=== PATIENT | female | born 2000 | race Caucasian/White ===

== ENCOUNTER 2022-05-15 15:19 | Emergency (ER) | payer OTHER, SELFPAY ==
[2022-05-15] VITALS (11 sets, daily range): BP systolic 91–137; BP diastolic 73–88; PULSE 105–110; RESP 16–18; TEMP 37; O2SAT 91–98
--- NOTE | ~2022-05-15 | XR_ITS ---
EXAM: XR ankle LT min 3V DATE: 05/15/2022 15:57 HISTORY: PT ROLLED ANKLE TODAY. PAIN AND SWELLING TO LATERAL LT ANKLE . COMPARISON: None available. FINDINGS: Normal mineralization. No fracture or dislocation. No lytic or blastic lesion. Joint space s are maintained. No erosion or periosteal change. Anterolateral soft tissue swelling. IMPRESSION: No acute osseous finding the left ankle. Reviewed, dictated and finalized at location K.
--- NOTE | 2022-05-15 15:51 | ED.GENADULT ---
HPI - General Adult General Chief complaint: Extremity Injury, Lower Stated complaint: left ankly deformity Time Seen by Provider: 05/15/22 15:26 History of Present Illness HPI narrative: 22-year-old female presenting the emergency department for evaluation of left ankle pain. Patient states she was walking on her driveway when her friend hopped on her back causing her to roll her left ankle. Patient states she has a deformity and witnessed loud pop. Patient denies any other pain or injury. Related Data Allergies Allergy/AdvReac Type Severity Reaction Status Date / Time lactose Allergy Gastrointestinal Verified 05/15/22 16:28 Upset Review of Systems Review of Systems: CONSTITUTIONAL: Denies fever, chills, or sweats. EYES: Denies visual changes, redness, or discharge. ENT: Denies rhinorrhea, congestion, sore throat, or otalgia. CARDIOVASCULAR: Denies chest pain, palpitations, or edema. RESPIRATORY: Denies cough or dyspnea. GASTROINTESTINAL: Denies abdominal pain, nausea, vomiting, or diarrhea. GENITOURINARY: Denies dysuria or hematuria. SKIN: Denies rash or itching. MUSCULOSKELETAL: Left ankle pain NEUROLOGIC: Denies headache, numbness, or weakness. Exam Narrative: CONSTITUTIONAL: Denies fever, chills, or sweats. EYES: Denies visual changes, redness, or discharge. ENT: Denies rhinorrhea, congestion, sore throat, or otalgia. CARDIOVASCULAR: Denies chest pain, palpitations, or edema. RESPIRATORY: Denies cough or dyspnea. GASTROINTESTINAL: Denies abdominal pain, nausea, vomiting, or diarrhea. GENITOURINARY: Denies dysuria or hematuria. SKIN: Denies rash or itching. MUSCULOSKELETAL: Left ankle pain with lateral deformity. No proximal leg tenderness NEUROLOGIC: Denies headache, numbness, or weakness. Course Course Emergency Course: X-ray shows no acute fracture or dislocation. Patient and family were updated on the results of the x-ray and plan for treatment for home. All questions concerns were addressed. Patient was provided Kenney wrap and crutches for limited weightbearing. Vital Signs Vital signs: Vital Signs Temperature 98.6 F 05/15/22 15:24 Pulse Rate 105 H 05/15/22 15:24 Respiratory Rate 18 05/15/22 15:24 Blood Pressure 137/87 05/15/22 15:24 Pulse Oximetry 96 05/15/22 15:24 Temperature 98.6 F 05/15/22 15:24 Pulse Rate 110 H 05/15/22 17:57 Respiratory Rate 16 05/15/22 17:57 Blood Pressure 125/84 05/15/22 17:57 Pulse Oximetry 98 05/15/22 17:57 Medical Decision Making Vital Signs Vital Signs: Vital Signs Temperature 98.6 F 05/15/22 15:24 Pulse Rate 105 H 05/15/22 15:24 Respiratory Rate 18 05/15/22 15:24 Blood Pressure 137/87 05/15/22 15:24 Pulse Oximetry 96 05/15/22 15:24 Temperature 98.6 F 05/15/22 15:24 Pulse Rate 110 H 05/15/22 17:57 Respiratory Rate 16 05/15/22 17:57 Blood Pressure 125/84 05/15/22 17:57 Pulse Oximetry 98 05/15/22 17:57 Imaging Data Radiologist's impression: Impressions Ankle X-Ray 05/15/22 16:29 IMPRESSION: No acute osseous finding the left ankle. Discharge Plan Discharge Clinical Impression: Ankle sprain and strain Patient Disposition: Home, Self-Care Condition: Stable Instructions: Antibiotic Form, Ankle Sprain (DC), Crutch Instructions (ED) Additional Instructions: Kenney wrap for comfort. Crutches for limited weightbearing for the next 3 to 5 days. Tylenol and ibuprofen for pain control. Have close follow-up with your primary care physician. Additionally you may need follow-up with orthopedics. If you have any worsening symptoms please call or return to the emergency department. Follow-up/Referrals: Ko Cintron MD [Physician] - Chuy Brady MD [Physician] - Torito,Kathleen Hsu MD [Primary Care Provider] -
== END 2022-05-15 17:59 | disposition home or self-care (01) ==
PROVIDERS: Emergency Provider Emergency Medicine; PCP Pediatrics Adolescent Medicine
DX: S93.402A Sprain of unspecified ligament of left ankle, initial encounter (principal); S96.912A Strain of unspecified muscle and tendon at ankle and foot level, left foot, initial encounter; X50.9XXA Other and unspecified overexertion or strenuous movements or postures, initial encounter
CPT/HCPCS: 73610; 99283

== ENCOUNTER 2022-05-21 12:59 | Emergency (ER) | payer OTHER, SELFPAY ==
--- NOTE | ~2022-05-21 | XR_ITS ---
EXAMINATION: XR ankle LT min 3V DATE: 05/21/2022 13:30 INDICATION: Lateral left ankle pain and bruising post fall TECHNIQUE: Anteroposterior, oblique, mortise, and lateral views of the left ankle were obtained. COMPARISON: 05/15/2022 FINDINGS: Alignment is normal. No fracture. Joint spaces are well maintained. Soft tissue swelling about the la teral malleolus. Increased density anterior to the ankle joint suggesting a moderate-sized ankle join t effusion. IMPRESSION: 1. Left ankle joint effusion and lateral sided soft tissue swelling without acute osseous abnormality . Reviewed, dictated and finalized at location A. IMPRESSION: 1. Left ankle joint effusion and lateral sided soft tissue swelling without acu te osseous abnormality.
[2022-05-21 13:01] VITALS: BP 136/81; PULSE 100; RESP 16; TEMP 36.6; O2SAT 100
--- NOTE | 2022-05-21 13:18 | ED.LOWEXIN ---
HPI - Extremity Injury (Lower) General Chief Complaint: Extremity Injury, Lower Stated Complaint: left ankle injury Time Seen by Provider: 05/21/22 13:02 Source: RN notes reviewed History of Present Illness HPI Narrative: Patient presents emergency department from home for left ankle pain. Patient states that she sprained her ankle approximately 6 days ago she states she was giving her friend a piggyback ride when her ankle gave out and she rolled her ankle she was at that time she comes emergency department had x-rays obtained that showed no acute fracture she is placed in Kenney wrap and placed on crutches states she has been minimally walking on the ankle she states the next day her dog jumped on her ankle and she had felt a pop she states ankle has been feeling better since then she denies any numbness or tingling of the extremities or any other symptoms Related Data Allergies Allergy/AdvReac Type Severity Reaction Status Date / Time lactose Allergy Gastrointestinal Verified 05/15/22 16:28 Upset Review of Systems Review of Systems: Gen.: Denies fevers or chills Musculoskeletal: See HPI Neuro: Denies numbness, tingling, weakness Skin: Denies rash Endo: Denies DM PMF Past Medical History Medical History (Updated 05/21/22 @ 14:54 by hCuck Dinh DO) Patient denies significant medical history Social History Social History (Updated 05/21/22 @ 13:18 by Chuck Dinh DO) Smoking status: Never smoker Exam Narrative: APPEARANCE: No acute distress, nontoxic, resting in bed Eyes: EOMI HEENT: Normocephalic, atraumatic, RESPIRATORY: No respiratory distress MUSCULOSKELETAl: Tender to palpation of the left lateral ankle with swelling and ecchymosis present in the lateral ankle down into the left foot no tenderness of the anterior medial ankle no tenderness of the proximal fibula or over the base of the fifth metatarsal dorsalis pedis pulse 2+ neurovascular intact NEURO: Awake and alert. Following commands, speech normal, no focal deficits SKIN:: Warm, dry. Normal Color no rash or lesions Course Course Emergency Course: Reviewed previous records as well as previous x-ray with the dog jumping on the ankle the following day we will repeat imaging Discussed with patient results of workup and diagnosis. Discussed need for follow-up with primary care, proper use of medication, and reasons to return to the emergency department. Patient understands and agrees to current treatment plan Vital Signs Vital signs: Vital Signs Temperature 97.9 F 05/21/22 13:01 Pulse Rate 100 05/21/22 13:01 Respiratory Rate 16 05/21/22 13:01 Blood Pressure 136/81 05/21/22 13:01 Pulse Oximetry 100 05/21/22 13:01 Oxygen Delivery Room Air 05/21/22 13:01 Temperature 97.9 F 05/21/22 13:01 Pulse Rate 100 05/21/22 13:01 Respiratory Rate 16 05/21/22 13:01 Blood Pressure 136/81 05/21/22 13:01 Pulse Oximetry 100 05/21/22 13:01 Oxygen Delivery Room Air 05/21/22 13:01 MDM - Extremity Injury (Lower) Imaging Data Radiologist's impression: ITS Impressions Ankle X-Ray 05/21/22 14:10 IMPRESSION: 1. Left ankle joint effusion and lateral sided soft tissue swelling without acute osseous abnormality. Discharge Plan Discharge Clinical Impression: Left ankle sprain Patient Disposition: Home, Self-Care Condition: Stable Instructions: Antibiotic Form, Ankle Sprain (ED) Prescriptions: New ibuprofen 600 mg tablet 600 mg PO TID PRN (Reason: pain) Qty: 14 0RF Follow-up/Referrals: Torito,Kathleen Hsu MD [Primary Care Provider] - 2 Days Time of Disposition: 14:54
[2022-05-21 15:03] VITALS: BP 118/75; PULSE 78; RESP 14; O2SAT 99
== END 2022-05-21 15:05 | disposition home or self-care (01) ==
PROVIDERS: Emergency Provider Emergency Medicine; PCP Pediatrics Adolescent Medicine
DX: S93.402A Sprain of unspecified ligament of left ankle, initial encounter (principal); X50.0XXA Overexertion from strenuous movement or load, initial encounter
CPT/HCPCS: 73610; 99283

== ENCOUNTER 2023-01-16 10:08 | Emergency (ER) | payer OTHER, SELFPAY ==
[2023-01-16 10:19] VITALS: BP 122/74; PULSE 107; RESP 16; TEMP 37.2; O2SAT 98
--- NOTE | 2023-01-16 10:26 | ED.URI ---
HPI - URI/Sore Throat General Chief Complaint: Upper Respiratory Infection Stated Complaint: Sinus Time Seen by Provider: 01/16/23 10:20 Source: patient Mode of arrival: ambulatory Limitations: no limitations History of Present Illness HPI Narrative: Shea is a 22-year-old female patient presenting to the clinic today with complaints of sinus congestion, sore throat, and productive cough with yellow phlegm. She reports that she noted fever last night of 100? F. Symptoms been ongoing x3-4 days. She is 30 weeks . MD elicited complaint: sore throat and nasal congestion Related Data Allergies Allergy/AdvReac Type Severity Reaction Status Date / Time lactose Allergy Gastrointestinal Verified 01/16/23 10:21 Upset Review of Systems Review of Systems: Pertinent positives per HPI. Patient denies any fever, chills, rash, headache, visual changes, dizziness, shortness of breath, chest pain, palpitations, nausea, vomiting, diarrhea, constipation, abdominal pain, or any urinary issues. PMFSH Past Medical History Medical History (Updated 01/16/23 @ 10:41 by Feliz Mahajan APRN) Patient denies significant medical history Social History Social History (Updated 05/21/22 @ 13:18 by Chuck Dinh DO) Smoking status: Never smoker Comments At the time of my signature, I reviewed and agree with the nursing past medical, surgical, social, and family history. There is no relevant family history pertinent to the patient complaint. Exam Narrative: General: Well-developed, well nourished, in no apparent distress, 30 weeks Head: Normocephalic, atraumatic Eyes: Pupils equally round and reactive to light bilaterally, EOM intact, sclera and conjunctive clear, no discharge, lids normal Ears: TMs intact and congested, ear canals clear, no drainage, grossly hearing normal. Nose: Nares patent, clear nasal discharge, no inflammation, no sinus tenderness. Mouth: Oral pharynx red without lesions or masses, good dentition, MMM. PND Neck: Supple, trachea midline, no enlargement of anterior or posterior cervical nodes, no thyroid masses or goiter palpable. Cardio: Regular rate and rhythm, s1 and s2 normal, no murmur appreciated. Resp: Clear to auscultation bilaterally, no rhonchi, rales, wheezing or rubs Course Course Emergency Course: Portions of this record may have been created with voice recognition software. Level of Care: Express Care Visit Vital Signs Vital signs: Vital Signs Temperature 37.2 C 01/16/23 10:19 Pulse Rate 107 H 01/16/23 10:19 Respiratory Rate 16 01/16/23 10:19 Blood Pressure 122/74 01/16/23 10:19 Pulse Oximetry 98 01/16/23 10:19 Oxygen Delivery Room Air 01/16/23 10:19 Temperature 37.2 C 01/16/23 10:19 Pulse Rate 107 H 01/16/23 10:19 Respiratory Rate 16 01/16/23 10:19 Blood Pressure 122/74 01/16/23 10:19 Pulse Oximetry 98 01/16/23 10:19 Oxygen Delivery Room Air 01/16/23 10:19 Vital signs reviewed MDM - URI/Sore Throat MDM Narrative Medical decision making narrative: At the time of visit patient is resting comfortably on exam table. Strep screen was obtained was negative in the clinic today. I suspect patient has URI. Supportive measures were discussed with the patient she voiced understanding discharge instructions agrees to treatment plan. Although no wheezing was here in the clinic she states that she is wheezing at times so I will go ahead and give her a prescription for an albuterol inhaler. Differential Diagnosis Differential diagnosis: Likely upper respiratory infection, otitis media, sinusitis, viral infection, bronchitis, influenza, pharyngitis and other (COVID) Discharge Plan Discharge Clinical Impression: Upper respiratory infection Qualifiers: URI type: unspecified viral URI Qualified Code(s): J06.9 - Acute upper respiratory infection, unspecified Patient Disposition: Home, Self-Care Condition: Stab
== END 2023-01-16 10:43 | disposition home or self-care (01) ==
PROVIDERS: Emergency Provider Nurse Practitioner Family
DX: J06.9 Acute upper respiratory infection, unspecified (principal); Z86.16 Personal history of COVID-19
CPT/HCPCS: 87081; 87880; 99213; G0463

== ENCOUNTER 2023-02-17 23:31 | Observation (INO) | payer OTHER, SELFPAY ==
[2023-02-18 00:29] VITALS: BMI 32.9
--- NOTE | 2023-02-18 00:29 | OBADM ---
This patient, Shea Singletary, admitted to the OB room Labor/Delivery/Recovery 104 for observation. Patient/family oriented to hospital policies and general routines including ID bracelet, bed and alarms, visiting hours, pain management, procedures, bathroom and other care routines, personal items, smoking policy, room service/diet, and visiting hours. Patient/Family are encouraged to report perceived risks to care and to ask questions if they do not understand what they are told or what they should do.
[2023-02-18 00:32] LABS: Appearance Urine Cloudy (Clear); Bacteria Urine 2+ /hpf; Bilirubin Urine Negative (Negative); Blood Urine 2+ (Negative); Color Urine Yellow (Yellow); Glucose Urine UA Negative (Negative); Ketones Urine 3+ mg/dL (Negative); Leukocyte Esterase Ur 1+ LEU/UL (Negative); Nitrate Urine Negative (Negative); Non Pathogenic Casts 0-2; Protein Urine Trace mg/dL (Negative); RBC Urine 0-2 /hpf (0-2); Specific Grav Ur 1.023 (1.001-1.035); Squamous Epithelial Cell Urine Moderate /hpf (Few)
[2023-02-18 00:42] LABS: Add Urine Microscopic? YES
--- NOTE | 2023-03-16 22:37 | PM.OBTRLD ---
OB - Triage/Final Diagnosis Visit Information Comments/Additional reasons for admission: I have assessed the risk for this patient, Shea Singletary, and determined that she would benefit from observation care. Evaluation Laboratory results: Laboratory Tests 02/18/23 00:23 Urine Color Yellow Urine Appearance Cloudy H Urine pH 6.0 Ur Specific [place] 1.023 Urine Protein Trace Urine Glucose (UA) Negative Urine Ketones 3+ H Ur Blood (Man) 2+ H Urine Nitrate Negative Urine Bilirubin Negative Urine Urobilinogen 1.0 Leukocyte Esterase Rfl 1+ H Urine RBC 0-2 Urine WBC 11-20 H Ur Squamous Epith Cells Moderate Urine Bacteria 2+ H Urine Casts 0-2 Final Diagnosis (1) False labor: Code(s): O47.9 - False labor, unspecified Status: Acute
== END 2023-02-18 01:21 | disposition home or self-care (01) ==
PROVIDERS: Admitting Provider Obstetrics & Gynecology; Visit Provider Obstetrics & Gynecology
DX: O47.03 False labor before 37 completed weeks of gestation, third trimester (principal); Z3A.35 35 weeks gestation of pregnancy
CPT/HCPCS: 81001; 87086; 87088; G0378; G0379

== ENCOUNTER 2023-02-18 02:21 | Inpatient (IN) | payer OTHER, SELFPAY ==
[2023-02-18] VITALS (51 sets, daily range): BP systolic 102–137; BP diastolic 43–94; PULSE 84–117; RESP 16–18; TEMP 36.2–37.4; O2SAT 96–100; BMI 33.0
--- NOTE | ~2023-02-18 | XR_ITS ---
EXAMINATION: XR abdomen/kub 1V DATE: 02/18/2023 03:32 INDICATION: No instrument count. TECHNIQUE: A supine view of the abdomen was obtained. COMPARISON: None. FINDINGS: There are no dilated loops of bowel. There is a small volume of stool in the colon. There i s no radiopaque foreign body. IMPRESSION: 1. No radiopaque foreign body. Reviewed, dictated and finalized at location E.
[2023-02-18] MEDS: LACTATED RINGERS 1,000 ML 999 ML IV CONT (02:33)
[2023-02-18 02:41] LABS: Basophils Absolute Auto 0.1 K/mm3 (0.0-0.1); Basophils Percent Auto 0.3 % (0.2-1.2); Eosinophils Absolute Auto 0.1 K/mm3 (0-0.3); Eosinophils Percent Auto 0.3 % (0-4.4); Hematocrit 32.1 % (37.0-47.0); Hemoglobin 10.3 g/dL (12.0-15.0); Immature Granulocyte Percent A 0.5 % (0-0.5); Lymphocytes Absolute Auto 2.17 K/mm3 (0.9-3.2); Lymphocytes Percent Auto 11.6 % (18.3-44.2); Mean Corpuscular HGB Conc 32.1 g/dl (32-36); Mean Corpuscular Hemoglobin 27.2 pg (26-34); Mean Corpuscular Volume 84.7 fl (80-100); Mean Platelet Volume 11.1 fl (7.4-10.4); Monocytes Absolute Auto 1.2 K/mm3 (0.1-0.6); Monocytes Percent Auto 6.4 % (2.6-8.5); Neutrophils Absolute Auto 15.2 K/mm3 (1.3-6.7); Neutrophils Percent Auto 80.9 % (45.5-73.1); Platelet Count Result 226 k/mm3 (150-375); Red Blood Count 3.79 M/mm3 (4.2-5.4); Red Cell Distribution Width 14.2 % (11.5-14.5); White Blood Count 18.8 K/mm3 (4.5-10.0)
--- NOTE | 2023-02-18 02:41 | WPDANESEPPF ---
Anes - Initial Pre Proc Eval Procedure: Date/Time: 02/18/23 02:41 Surgeon: Lucretia Ledezma MD Pre Op Diagnosis: Vaginal Bleeding Pre Op Diagnosis: vaginal bleeding Patient Data Age: 22 Gender: F Height: Weight: Last Vital Signs Pulse Ox 100 02/18/23 02:40 Allergies Allergy/AdvReac Type Severity Reaction Status Date / Time lactose Allergy Gastrointestinal Verified 01/16/23 10:21 Upset Home Medications Medication Instructions Recorded Confirmed Type albuterol sulfate 90 mcg/actuation 2 puff inhalation Q4-6H PRN 01/16/23 Rx aerosol inhaler shortness of breath or wheezing 30 days #8.5 grams nitrofurantoin 100 mg PO Q12H #14 caps 02/18/23 Rx monohydrate/macrocrystals 100 mg capsule (Macrobid) Laboratory Tests 02/18/23 02/18/23 02:36 02:37 WBC Pending RBC Pending Hgb Pending Hct Pending MCV Pending MCH Pending MCHC Pending RDW Pending Plt Count Pending MPV Pending Immature Gran % (Auto) Pending Neut % (Auto) Pending Lymph % (Auto) Pending [place] % (Auto) Pending Eos % (Auto) Pending Baso % (Auto) Pending Lymph # (Auto) Pending [place] # (Auto) Pending Eos # (Auto) Pending Baso # (Auto) Pending Abs Immat Gran (auto) Pending Absolute Neuts (auto) Pending Absolute Nucleated RBC Pending Nucleated RBC % Pending PT Pending INR Pending APTT Pending Fibrinogen Pending RPR Pending Patient hx anesthesia problems: none Family hx anesthesia problems: none Results Review: All pre-operative results and documents have been reviewed as part of the pre-operative evaluation. [facility] Past Medical History Medical History Patient denies significant medical history Social History Social History Smoking status: Never smoker Anes - Eval Final PreProcedure Day of Procedure 02/18/23 02:41 Patient weight: normal Heart: regular rate and rhythm Lungs: clear to auscultation Airway: Mallampati scale class II Neurological: alert and oriented Last oral intake: 4 hours ASA classification: II Emergent: yes Anesthetic plan: proceed Anesthesia type and monitoring: general and standard monitoring Results Review: All pre-operative results and documents have been reviewed as part of the pre-operative evaluation. Informed Consent: The patient's anesthetic plan and its attendant risks and benefits were discussed with the patient/family/POA. Questions were solicited and answers provided to the satisfaction of the patient/family/POA.
[2023-02-18 02:54] LABS: Partial Thromboplastin Time 28.1 SECONDS (22.3-36.8); Prothrombin Time 13.5 Seconds (11.1-14.7)
[2023-02-18 02:55] LABS: Fibrinogen 556 mg/dl (215-510)
[2023-02-18] MEDS: ceFAZolin 2 GM/D5W 50 ML 2 GM/50 ML BAG IVPB (03:02)
--- NOTE | 2023-02-18 03:15 | P.PNAN_ITS ---
Anes - Eval Final PreProcedure Day of Procedure 02/18/23 03:15 Patient weight: obese Heart: regular rate and rhythm Lungs: clear to auscultation Airway: Mallampati scale class II Neurological: alert and oriented Last oral intake: >/= 8 hours ASA classification: II Emergent: yes Anesthetic plan: proceed Anesthesia type and monitoring: general ETT and standard monitoring Results Review: All pre-operative results and documents have been reviewed as part of the pre- operative evaluation. Informed Consent: The patient's anesthetic plan and its attendant risks and benefits were discussed with the patient/family/POA. Questions were solicited and answers provided to the satisfaction of the patient/family/POA.
--- NOTE | 2023-02-18 03:32 | PM.IMHP ---
H&P: HPI History of Present Illness Date/Time: 02/18/23 03:32 Chief Complaint: Vaginal bleeding Narrative: 22-year-old 1 at 35 weeks gestation who presented copious vaginal bleeding. She was believed to have a placental abruption and was taken immediately to the operating room for . She denies any nausea, vomiting, fever, chills she denies any chest pain shortness of breath. She was stacy irregularly. Review of Systems Review of Systems: All systems reviewed & are unremarkable except as noted in HPI and below Constitutional: Constitutional: Denies chills, Denies fatigue, Denies fever(s) and Denies weakness Eyes: Eyes: Denies blurry vision, Denies change in vision, Denies loss of peripheral vision, Denies loss of vision, Denies other visual disturbances and Denies eye pain ENT: Denies vertigo, Denies dizziness, Denies hearing loss, Denies mouth pain, Denies nasal obstruction, Denies neck mass and Denies neck pain Cardiovascular: Cardiovascular: Denies chest pain, Denies diaphoresis, Denies syncope, Denies leg edema and Denies dyspnea Respiratory: Respiratory: Denies chest congestion, Denies cough, Denies hemoptysis, Denies dyspnea and Denies wheezing Gastrointestinal: Gastrointestinal: Denies abdominal pain, Denies constipation, Denies diarrhea, Denies nausea and Denies vomiting Genitourinary: Genitourinary: Denies hematuria, Denies change in libido, Denies nocturia, Denies genital lesions, Denies flank pain and Denies urinary urgency Musculoskeletal: Musculoskeletal: Denies abnormal gait, Denies back pain, Denies myalgias, Denies arthralgias, Denies joint swelling, Denies muscle weakness and Denies neck pain Integumentary/Breasts: Skin/Breast: Denies swelling, Denies breast pain, Denies breast mass, Denies dry skin, Denies nipple discharge, Denies unusual bruising and Denies jaundice Neurologic: Denies Neuro-related abnormal movements, Denies Abnormal speech present, Denies abnormal gait, Denies behavioral changes, Denies confusion, Denies vertigo, Denies dizziness, Denies syncope, Denies loss of vision, Denies memory loss, Denies convulsions and Denies weakness Psychiatric: Psychiatric: Denies abnormal sleep pattern, Denies behavioral changes, Denies change in libido, Denies confusion, Denies depression, Denies anhedonia and Denies memory loss Endocrine: Endocrine: Reports no additional endocrine complaints, Denies change in libido and Denies fatigue Hematologic/Lymphatic: Hematologic/Lymphatic: Reports no additional hematologic/lymphatic complaints Allergic/Immunologic: Allergic/Immunologic: Reports no additional allergic/immunologic complaints and Denies wheezing PMFSH Past Medical History Medical History Patient denies significant medical history Social History Social History Smoking status: Never smoker Meds Home Medications and Allergies Home Medications Medication Instructions Recorded Confirmed Type albuterol sulfate 90 mcg/actuation 2 puff inhalation Q4-6H PRN 01/16/23 Rx aerosol inhaler shortness of breath or wheezing 30 days #8.5 grams nitrofurantoin 100 mg PO Q12H #14 caps 02/18/23 Rx monohydrate/macrocrystals 100 mg capsule (Macrobid) Allergies Allergy/AdvReac Type Severity Reaction Status Date / Time lactose Allergy Gastrointestinal Verified 01/16/23 10:21 Upset Vital Signs Vital Signs - 24 hr 02/18/23 02:25 02/18/23 02:30 02/18/23 02:35 Pulse Oximetry 100 100 100 02/18/23 02:40 02/18/23 02:45 Pulse Oximetry 100 100 Exam Const: General: cooperative, healthy appearing, comfortable and no acute distress Orientation/consciousness: oriented to person, oriented to place and oriented to time HENMT: Head: normal to inspection Ears: external ears normal Face/Nose/Sinus: Normal external nose present and normal facia
--- NOTE | 2023-02-18 03:38 | W.PM.PROC2 ---
Procedure Note - Detailed Date of Procedure 02/18/23 Pre-op Diagnosis vaginal bleeding Post-op Diagnosis Same ( Placental abruption) Procedure Performed Low-transverse section Surgeon Jere Alex MD Anesthesia Spinal Indications vaginal bleeding Findings Normal gestational maternal anatomy, average size for gestational age, gestational age appropriatel Apgars. large amount of clot within the intrauterine cavity Description of Procedure The patient was taken the operating room. She was prepped and draped in dorsal supine position with a leftward tilt. This was done after spinal anesthetic was applied. A low-transverse skin incision was made and carried down till of the fascia with the knife. The fascial incision was made with the knife. The fascial incision was extended laterally with Hernandez scissors. The fascia was tented upward superiorly and inferiorly the rectus muscles were dissected off bluntly. The rectus muscles were the midline. The preperitoneal fat and peritoneum were dissected open bluntly at the superior aspect of the rectus muscles. The peritoneal incision was extended superior and inferior with good position of bladder. The uterine incision was made with a scalpel down to the level of the amniotic cavity. The amniotic cavity was entered bluntly. The infant was delivered. The cord was clamped and cut and the infant was handed off to waiting pediatric staff. Cord bloods were obtained. The placenta was removed manually. The uterus was exteriorized. The uterus was cleared of all clots, debris and membranes. The uterus was closed in 0 Vicryl running lock fashion. An imbricating over a was placed along the incision line as well. The uterus was returned to the abdomen. The gutters were cleared of all clots and debris. The fascia was closed with 0 Vicryl running fashion. The subcutaneous tissue was irrigated pinpoint bleeders were cauterized. The skin was closed with subcuticular absorbable rosa isela. The skin incision line was covered with glue. The patient tolerated the procedure well. She has taken recovery room in stable condition. Sponge lap and needle counts were correct x2. Estimated Blood Loss 400 Complications No immediate complications Condition Stable Disposition PACU
[2023-02-18] MEDS: HYDROmorphone HCL INJ (*CRX) 1 MG/ML SYR 0.25 MG IV PUSH ×8 (03:52→05:31)
--- NOTE | 2023-02-18 05:10 | LDADM ---
This patient, Shea Singletary, was admitted to Labor/Delivery/Recovery 120 on 02/18/23 at 02:26. Plans for labor, pain management and were discussed with patient. Patient/family oriented to hospital policies and general routines including ID bracelet, bed and alarms, visiting hours, pain management, procedures, bathroom and other care routines, personal items, smoking policy, room service/diet and guest tray routines, security routines, and visiting hours. Patient/Family are encouraged to report perceived risks to care and to ask questions if they do not understand what they are told or what they should do. See OBIX for further documentation.
--- NOTE | 2023-02-18 05:40 | OBPPTRN ---
Patient transferred to post room #288 via stretcher. Support person present. Oriented to unit, room, information board, rooming in, admission packet and security measures. Patient verbalizes understanding.
[2023-02-18] MEDS: KCL 20 MEQ/D5/0.45% SOD CHL 1,000 ML 125 ML IV CONT (08:36)
[2023-02-18] MEDS: MORPHINE SULFATE PCA (*CRX) 30 MG/30 ML SYR IV CONT (08:36)
[2023-02-18] MEDS: MULTIVIT/MIN/PREN/FOL AC/IRON TABLET 1 TAB PO (09:01)
[2023-02-18] MEDS: POLYSACCHARIDE IRON COMPLEX 150 MG CAPSULE PO (09:01)
[2023-02-18] MEDS: DOCUSATE SODIUM 100 MG CAPSULE PO (09:01)
[2023-02-18] MEDS: IBUPROFEN 600 MG TABLET PO (15:08)
[2023-02-18] MEDS: HYDROcodone/acetaminophen (*CRX) 10-325 MG TABLET 1 TAB PO ×2 (15:10→23:17)
--- NOTE | 2023-02-18 17:33 | PC.NURSE ---
0940 Called Pharmacy to ask them to send up the [employer]. Stated they will work on it and send it.
[2023-02-19 05:34] LABS: Basophils Absolute Auto 0.1 K/mm3 (0.0-0.1); Basophils Percent Auto 0.3 % (0.2-1.2); Eosinophils Absolute Auto 0.1 K/mm3 (0-0.3); Eosinophils Percent Auto 0.6 % (0-4.4); Hematocrit 27.9 % (37.0-47.0); Immature Granulocyte Percent A 0.6 % (0-0.5); Lymphocytes Absolute Auto 2.72 K/mm3 (0.9-3.2); Lymphocytes Percent Auto 16.9 % (18.3-44.2); Mean Corpuscular HGB Conc 32.3 g/dl (32-36); Mean Corpuscular Hemoglobin 28.1 pg (26-34); Mean Corpuscular Volume 87.2 fl (80-100); Mean Platelet Volume 11.3 fl (7.4-10.4); Monocytes Absolute Auto 1.4 K/mm3 (0.1-0.6); Monocytes Percent Auto 8.6 % (2.6-8.5); Neutrophils Absolute Auto 11.8 K/mm3 (1.3-6.7); Platelet Count Result 218 k/mm3 (150-375); Red Cell Distribution Width 14.5 % (11.5-14.5); White Blood Count 16.1 K/mm3 (4.5-10.0)
[2023-02-19 06:30] VITALS: BP 113/71; PULSE 94; RESP 16; TEMP 37.5; O2SAT 100
[2023-02-19] MEDS: IBUPROFEN 600 MG TABLET PO ×3 (06:31→21:51)
[2023-02-19] MEDS: HYDROcodone/acetaminophen (*CRX) 10-325 MG TABLET 1 TAB PO ×3 (06:31→21:51)
[2023-02-19] MEDS: MULTIVIT/MIN/PREN/FOL AC/IRON TABLET 1 TAB PO (08:09)
[2023-02-19] MEDS: POLYSACCHARIDE IRON COMPLEX 150 MG CAPSULE PO ×2 (08:09→15:18)
[2023-02-19] MEDS: DOCUSATE SODIUM 100 MG CAPSULE PO ×2 (08:09→15:18)
--- NOTE | 2023-02-19 09:48 | PM.OBPNVD ---
OB - PN: Subj Subjective Date/time seen: 02/19/23 09:48 Patient comments: no complaints, pain well controlled, tolerating diet and flatus present OB - PN: Obj Data Labs 02/19/23 04:17 Labs: Laboratory Results - last 24 hr 02/19/23 04:17 WBC 16.1 H RBC 3.20 L Hgb 9.0 L Hct 27.9 L MCV 87.2 MCH 28.1 MCHC 32.3 RDW 14.5 Plt Count 218 MPV 11.3 H Immature Gran % (Auto) 0.6 H Neut % (Auto) 73.0 Lymph % (Auto) 16.9 L [place] % (Auto) 8.6 H Eos % (Auto) 0.6 Baso % (Auto) 0.3 Lymph # (Auto) 2.72 [place] # (Auto) 1.4 H Eos # (Auto) 0.1 Baso # (Auto) 0.1 Abs Immat Gran (auto) 0.10 H Absolute Neuts (auto) 11.8 H Absolute Nucleated RBC 0.0 Nucleated RBC % 0.0 OB - PN A/P Plan day: 1 Comments: Post Op LTCS - no problems, routine recovery Time Spent With Patient Time: Total time spent is greater than 50% in coordination of care (as documented) at patient's floor/unit and/or counseling patient: Exam Const: General: cooperative, healthy appearing, comfortable and no acute distress Resp: Auscultation: no crackles, no rales, no rhonchi and no wheezes Cardio: Rhythm: regular rhythm Heart sounds: no click and no murmurs GI: Inspection: non-distended Auscultation: normal bowel sounds Extrem: General: normal to inspection, no pedal edema and no calf tenderness
[2023-02-19 18:53] VITALS: BP 112/68; PULSE 96; RESP 16; TEMP 36.8
[2023-02-20 07:50] VITALS: BP 106/66; PULSE 98; RESP 16; TEMP 37.2; O2SAT 98
[2023-02-20] MEDS: POLYSACCHARIDE IRON COMPLEX 150 MG CAPSULE PO ×2 (08:29→17:41)
[2023-02-20] MEDS: MULTIVIT/MIN/PREN/FOL AC/IRON TABLET 1 TAB PO (08:29)
[2023-02-20] MEDS: DOCUSATE SODIUM 100 MG CAPSULE PO ×2 (08:29→17:41)
[2023-02-20] MEDS: IBUPROFEN 600 MG TABLET PO ×2 (08:29→17:41)
--- NOTE | 2023-02-20 09:00 | PM.OBPNVD ---
OB - PN: Subj Subjective Date/time seen: 02/20/23 09:00 Patient comments: no complaints and pain well controlled baby status: bottle feeding well Narrative: wants to breast feed but hasnt' tried yet. baby with elevated bilirubin. OB - PN: Obj Data Labs 02/19/23 04:17 OB - PN A/P Plan day: 2 Plan: routine care Comments: plan stay until day 4 since baby 35w, encouraged to try breast feeding if really wants to circ today or tomorrow Time Spent With Patient Time: Total time spent is greater than 50% in coordination of care (as documented) at patient's floor/unit and/or counseling patient: Exam Narrative: NAD abdomen soft, appropriately tender, incision CDI Extremities nontender with 1+ edema
[2023-02-20 13:14] LABS: Rapid Plasma Reagin Non-Reactive (NonReactive)
[2023-02-20] MEDS: HYDROcodone/acetaminophen (*CRX) 5-325 MG TABLET 1 TAB PO ×2 (13:57→19:32)
[2023-02-20 19:25] VITALS: BP 122/81; PULSE 108; RESP 16; TEMP 36.8
[2023-02-21] MEDS: IBUPROFEN 600 MG TABLET PO ×4 (02:33→22:46)
[2023-02-21] MEDS: HYDROcodone/acetaminophen (*CRX) 5-325 MG TABLET 1 TAB PO ×3 (02:33→22:46)
--- NOTE | 2023-02-21 07:48 | PM.OBPNVD ---
OB - PN: Subj Subjective Date/time seen: 02/21/23 07:48 OB - PN: Obj Data Labs 02/19/23 04:17 Labs: Laboratory Results - last 24 hr 02/18/23 02:36 RPR Non-reactive OB - PN A/P Assessment and Plan (1) Placental abruption: Code(s): O45.90 - Premature separation of placenta, unspecified, unspecified trimester Status: Acute (2) delivery delivered: Code(s): O82 - Encounter for delivery without indication Status: Acute Plan day: 3 Plan: routine care Comments: DC home tomorrow. baby 35w. circumcision done. Time Spent With Patient Time: Total time spent is greater than 50% in coordination of care (as documented) at patient's floor/unit and/or counseling patient:
[2023-02-21 08:30] VITALS: BP 136/77; PULSE 82; RESP 16; TEMP 36.7; O2SAT 100
[2023-02-21] MEDS: POLYSACCHARIDE IRON COMPLEX 150 MG CAPSULE PO ×2 (09:28→16:08)
[2023-02-21] MEDS: DOCUSATE SODIUM 100 MG CAPSULE PO ×2 (09:29→16:07)
[2023-02-21] MEDS: MULTIVIT/MIN/PREN/FOL AC/IRON TABLET 1 TAB PO (09:29)
--- NOTE | 2023-02-21 15:13 | PC.NURSE ---
[id number] Introductions were made, then consulted with patient to assess needs related to . Reported to RN mother had changed her mind to bottle feeding, however, mother states plans to breastfeed. is late and has had Neosure ordered after three attempts to breastfeed. Mother led the conversation with her?plans to feed?her and the?experience so far. Resources provided for inpatient and outpatient services with the feeding sheet, mom/baby guide and name written on the white board. Mother voiced understanding of information, requested assistance with the next feeding and will call. [phone] Mother called for assistance. After a diaper was changed and circumcision care reviewed was placed [id number]. Mother works well with her with encouragement and education. Encouraged understanding of the benefits of skin to skin (demonstrating unwrapping and placing upright on her chest), stimulating with massage touch, changing positions to encourage wakefulness, how to watch for early feeding cues, responsive feeding, feeding on demand (aiming for 8-12 times in 24 hours, about every 2-3 hours), milk production,hand expression, building/maintaining a milk supply, duration of feeding, signs of adequate intake/output and how to record on the feeding sheet. Reviewed positioning and ear, shoulder, hip alignment, supporting the breast to facilitate a deep latch with the sandwich hold, asymmetrical latch (off-center), leading with the chin with a big, open, wide gape and body close to mother. Infant latched optimally to the left breast in cross cradle position. Education given to mother of how to visualize suck/swallow ratios and listen for drinking at the breast. was able to maintain latch without discomfort to mother. Nipple care reviewed with optimal latch and good positioning. Reminding mother of comfort measures of healing with a warm and wet washcloth to rinse breast, then leave open to air-dry as needed. Reviewed good handwashing when or touching the breast/nipples to prevent infection. Resources used to facilitate learning were used with the tool, mom and baby guide. Mother voiced understanding of skin to skin, stimulating with massage touch, responsive feedings, hand expressed colostrum, talking to to encourage if it has been 2 -2.5 hours since the start of the last , to call if does not latch, or if there is discomfort with . Resources provided for inpatient/outpatient with business card, feeding sheet and the mom/baby guide. Parents voiced understanding of information, demonstrated learning and will call if there is a request for assistance. Reported to the primary RN. [phone] Primary RN called to request to the room. Upon entering the room mother was getting up from a nap, father of baby was bottle feeding infant breast milk using a slow flow nipple and paced bottle feeding. Mother denied needing assistance at this time. Reported to Primary RN.
[2023-02-21 19:15] VITALS: BP 130/70; PULSE 93; RESP 16; TEMP 36.7
--- NOTE | 2023-02-22 07:13 | PM.OBPNVD ---
OB - PN: Subj Subjective Date/time seen: 02/22/23 07:13 Patient comments: no complaints and pain well controlled baby status: doing well [place] feeding status: pumping and bottle feeding OB - PN: Obj Data Labs 02/19/23 04:17 OB - PN A/P Plan day: 4 Plan: routine care and discharge home Time Spent With Patient Time: Total time spent is greater than 50% in coordination of care (as documented) at patient's floor/unit and/or counseling patient: Exam Narrative: NAD abdomen soft, appropriately tender, incision CDI Extremities nontender with 1+ edema
--- NOTE | 2023-02-22 07:18 | PM.OBDSVD ---
DS: Admitting Diagnosis Discharge Date 02/22/23 Admitting Diagnosis IUP 35w, placental abruption DS: Discharge Diagnosis Discharge Diagnosis (1) delivery delivered: Code(s): O82 - Encounter for delivery without indication Status: Acute (2) Placental abruption: Code(s): O45.90 - Premature separation of placenta, unspecified, unspecified trimester Status: Acute OB - DS: Summary Hospital Course Hospital Course: Shea presented at 35w with heavy vaginal bleeding and underwent urgent section for placental abruption. Her post course was uncomplicated and she was discharged home on POD 4 in stable condition. OB Procedures : Ultrasound OB Procedures Intrapartum: OB Procedures: : None Peripartum Data Delivery Method: Section Procedures: Procedures Operation Date: 02/18/23 02:45 Actual Procedure Side Surgeon p Section Not Applicable Jere Alex MD complications: none Status at Discharge Functional status at discharge: independent ambulation Time Spent with Patient Time attestation: Total time spent providing and/or coordinating discharge services: Exam Narrative: NAD abdomen soft, appropriately tender, incision CDI DS: Data Data Completed and Pending Pending studies at discharge: Pending at discharge 02/18/23 05:32 Surgical [PTH] Routine Discharge Plan Discharge Attending physician on discharge: Lucretia Ledezma Discharging Clinician: Lucretia Ledezma Anticipated Discharge Date/Time: 02/22/23 07:13 Patient Disposition: Home, Self-Care Activity: may shower, may drive after 2 weeks and pelvic rest Diet: regular Patient Instructions: Antibiotic Form Stand Alone Forms: General Discharge Information Follow-up/Referrals: Lucretia Ledezma MD [Physician] - 1 Week Discharge Medications: New hydrocodone-acetaminophen 5-325 mg Tablet 1 tablet PO Q4-5H PRN (Reason: Moderate Pain (4-6)) Qty: 30 0RF docusate sodium 100 mg Capsule 100 mg PO BID PRN (Reason: Constipation) Qty: 60 0RF ibuprofen 600 mg Tablet 600 mg PO Q6H PRN (Reason: Cramping) Qty: 60 0RF Continued albuterol sulfate 90 mcg/actuation HFA aerosol inhaler 2 puff inhalation Q4-6H PRN (Reason: shortness of breath or wheezing) 30 Days Qty: 8.5 0RF Discontinued nitrofurantoin monohyd/m-cryst [Macrobid] 100 mg Capsule 100 mg PO Q12H Qty: 14 0RF Rx Instructions: must administer with a meal/food Date of admission: 02/18/23 02:26 Primary Care Provider: PHYSICIAN,ELECTRONICS INSTALLER Admitting Provider: Lucretia Ledezma Attending physician on admission: Lucretia Ledezma Condition: Stable
[2023-02-22 08:25] VITALS: BP 110/73; PULSE 94; RESP 18; TEMP 37.3; O2SAT 98
[2023-02-22] MEDS: MULTIVIT/MIN/PREN/FOL AC/IRON TABLET 1 TAB PO (08:31)
[2023-02-22] MEDS: DOCUSATE SODIUM 100 MG CAPSULE PO (08:31)
[2023-02-22] MEDS: HYDROcodone/acetaminophen (*CRX) 5-325 MG TABLET 1 TAB PO (08:32)
[2023-02-22] MEDS: POLYSACCHARIDE IRON COMPLEX 150 MG CAPSULE PO (08:32)
[2023-02-22] MEDS: IBUPROFEN 600 MG TABLET PO (08:32)
[2023-02-23 10:18] VITALS: BP 122/81; PULSE 91; RESP 18; TEMP 37.1; O2SAT 100
== END 2023-02-22 11:17 | disposition home or self-care (01) | DRG 788 ==
LOC: ANHLDR 03:21 → ANHOB2 05:42
PROVIDERS: Admitting Provider Obstetrics & Gynecology; Visit Provider Obstetrics & Gynecology
PROC: 10D00Z1 Extraction of Products of Conception, Low, Open Approach (ICD-10-PCS; CPT 59514; principal; 2023-02-18 02:45)
DX: O45.93 Premature separation of placenta, unspecified, third trimester (principal); Z3A.35 35 weeks gestation of pregnancy; Z37.0 Single live birth
CPT/HCPCS: 36415; 74018; 81001; 85025; 85384; 85610; 85730; 86592; 86850; 86900; 86901; 87086; 87088; 88307; A9270; J0690; J1170; J2250; J2270; J3480; J7120